=== PATIENT | female | born 1965 | race Caucasian/White ===

== ENCOUNTER 2017-04-30 08:21 | Emergency (ER) | payer MEDICAID ==
[~2017-04-30] VITALS: Ht 157.5 cm; Wt 64.4 kg
[~2017-04-30 08:21] MED LIST: CLON0.5T4 PO; IBUP-974 PO; SERT100T1 PO
[2017-04-30 08:28] VITALS: BP 141/106
--- NOTE | 2017-04-30 08:35 | NUR ---
Patient ambulated to bed 7. RN evaluating patient at bedside.
--- NOTE | 2017-04-30 08:45 | NUR ---
PATIENT PRESENTS TO ED WITH PT PRESENTS TO ER W/C/O PALPITATIONS AND INTERMITTENT CHEST PAIN. PT STATES SHE IS UNDER A LOT OF STRESS, AND HAS HX OF ANXIETY AND DEPRESSION. DENIES N/V/D; SKIN IS PINK/WARM/DRY; AAOX4 WITH EVEN AND STEADY GAIT; LUNGS CLEAR BL; HR EVEN AND REGULAR; PT DENIES ANY FEVER, SOB, OR COUGH AT THIS TIME; PATIENT STATES PAIN OF 8/10 AT THIS TIME; VSS; PATIENT POSITIONED FOR COMFORT; HOB ELEVATED; BEDRAILS UP X2; BED DOWN. ER MD MADE AWARE OF PT STATUS.
--- NOTE | 2017-04-30 08:51 | NUR ---
Dr. Campos evaluating patient at bedside.
[2017-04-30] MEDS ORDERED: ASPIRIN 325 MG TAB PO ONE (08:55)
[2017-04-30] MEDS ORDERED: NITROGLYCERIN 0.4 MG TAB SL ONE (08:55)
[2017-04-30] MEDS ORDERED: LORazepam 2 MG/ML VIAL IVP ONE (08:55)
[2017-04-30] MEDS ORDERED: LORazepam 1 MG TAB PO ONE (09:00)
--- NOTE | 2017-04-30 09:11 | NUR ---
tv technician at bedside.
[2017-04-30 09:35] LABS: BASOPHILS # (AUTO) 0.3 K/uL (0.00-0.22); EOSINOPHILS # (AUTO) 0.1 K/uL (0-0.4); EOSINOPHILS % (AUTO) 1.6 % (0.0-4.0); HEMATOCRIT 35.9 % (36-48); HEMOGLOBIN 11.7 g/dL (12.0-16.0); LYMPHOCYTES % (AUTO) 31.1 % (20.5-51.1); MEAN CORPUSCULAR HEMOGLOBIN 28 pg (27-31); MEAN CORPUSCULAR HGB CONC 33 g/dL (33-37); MEAN CORPUSCULAR VOLUME 86 fL (80-94); MONOCYTES # (AUTO) 0.5 K/uL (0.8-1.0); MONOCYTES % (AUTO) 7.6 % (1.7-9.3); NEUTROPHILS # (AUTO) 3.4 K/uL (1.8-7.7); NEUTROPHILS % (AUTO) 55.7 % (42.2-75.2); PLATELET COUNT (AUTO) 266 K/uL (140-450); RED BLOOD CELL COUNT(AUTO) 4.19 MIL/uL (4.20-5.40); RED CELL DISTRIBUTION WIDTH 14.2 % (11.6-13.7); WHITE BLOOD COUNT (AUTO) 6.3 K/uL (4.8-10.8)
[2017-04-30 09:50] LABS: ALBUMIN 3.5 g/dL (3.4-5.0); ANION GAP 11.5 (8-16); CARBON DIOXIDE 27.8 mmol/L (21-32); CREATININE 0.8 mg/dL (0.6-1.3); POTASSIUM 3.3 mmol/L (3.5-5.1); TOTAL BILIRUBIN 0.3 mg/dL (0.0-1.0)
[2017-04-30 10:55] VITALS: BP 114/73
--- NOTE | 2017-04-30 10:55 | NUR ---
Patient discharged with v/s stable. Written and verbal after care instructions given and explained. Patient verbalized understanding. Ambulatory with steady gait. All questions addressed prior to discharge. Advised to follow up with PMD.
== END 2017-04-30 10:55 | disposition home or self-care (01) ==
LOC: MED 08:21
DX: F41.9 Anxiety disorder, unspecified (principal); R07.89 Other chest pain; R00.2 Palpitations; R03.0 Elevated blood-pressure reading, without diagnosis of hypertension; F32.9 Major depressive disorder, single episode, unspecified
CPT/HCPCS: 36415; 71010; 80053; 84484; 85025; 85610; 85730; 93005; 99285; Q0092

== ENCOUNTER 2022-01-20 16:43 | Emergency (ER) | payer MEDICAID, OTHER ==
[~2022-01-20] VITALS: Ht 157.5 cm; Wt 70.8 kg
[2022-01-20 17:04] VITALS: BP 117/69
--- NOTE | 2022-01-20 17:15 | NUR ---
56 Y/O FEMALE C/O CHEST PAIN 01/26 X1DAY. PT STATES SHE TOOK NAPROXEN WITH SOME RELIEF. DENIES FEVER/CHILLS. DENIES N/V/D. PMH: AFIB BLOOD THINNERS NKA
[2022-01-20] MEDS ORDERED: KETOROLAC 60 MG/2 ML VIAL IM ONE (18:30)
[2022-01-20] MEDS ORDERED: OMEP40EC24 PO (18:58)
--- NOTE | 2022-01-20 19:34 | NUR ---
Patient discharged with v/s stable. Written and verbal after care instructions given and explained. Patient alert, oriented and verbalized understanding of instructions. Ambulatory with steady gait. All questions addressed prior to discharge. ID band removed. Patient advised to follow up with PMD. Rx of PRILOSEC given. Patient educated on indication of medication including possible reaction and side effects. Opportunity to ask questions provided and answered.
== END 2022-01-20 19:36 | disposition home or self-care (01) ==
LOC: MED 16:43
DX: R07.89 Other chest pain (principal); R10.9 Unspecified abdominal pain; Z79.899 Other long term (current) drug therapy; Z90.49 Acquired absence of other specified parts of digestive tract
CPT/HCPCS: 93005; 96372; 99283; J1885

== ENCOUNTER 2022-06-16 22:18 | Emergency (ER) | payer OTHER ==
[~2022-06-16] VITALS: Ht 157.5 cm; Wt 72.1 kg
[~2022-06-16 22:18] MED LIST changes: +OMEP40EC24 PO
[2022-06-16 22:35] VITALS: BP 131/64
--- NOTE | 2022-06-16 22:42 | NUR ---
Patient taken to bed 11.
--- NOTE | 2022-06-16 23:23 | NUR ---
Dr. Covarrubias examining patient.
[2022-06-16] MEDS ORDERED: DICYCLOMINE HCL LIQUID 20 MG, ALUMINUM HYD/MAG/SIMETHICONE 30 ML, LIDOCAINE VISCOUS 2% ... PO ONE ×3 (23:45)
[2022-06-16] MEDS ORDERED: KETOROLAC 30 MG/ML VIAL IM ONE (23:45)
[2022-06-16] MEDS ORDERED: ALUMINUM HYD/MAG/SIMETHICONE 30 ML UDC ONE (23:47)
[2022-06-16] MEDS ORDERED: DICYCLOMINE HCL LIQUID 10 MG/5 ML UDC ONE (23:48)
[2022-06-17 00:05] LABS: BASOPHILS % (AUTO) 0.7 % (0.0-2.0); EOSINOPHILS # (AUTO) 0.1 K/uL (0-0.4); EOSINOPHILS % (AUTO) 1.7 % (0.0-4.0); HEMATOCRIT 27.9 % (36-48); LYMPHOCYTES # (AUTO) 2.6 K/uL (2.5-16.5); LYMPHOCYTES % (AUTO) 40.9 % (20.5-51.1); MEAN CORPUSCULAR HEMOGLOBIN 23 pg (27-31); MEAN CORPUSCULAR HGB CONC 32 g/dL (33-37); MEAN CORPUSCULAR VOLUME 71.6 fL (80-94); MONOCYTES # (AUTO) 0.5 K/uL (0.8-1.0); MONOCYTES % (AUTO) 8.1 % (1.7-9.3); NEUTROPHILS # (AUTO) 3.1 K/uL (1.8-7.7); NEUTROPHILS % (AUTO) 48.6 % (42.2-75.2); PLATELET COUNT (AUTO) 232 K/uL (140-450); RED CELL DISTRIBUTION WIDTH 18.7 % (11.6-13.7); WHITE BLOOD COUNT (AUTO) 6.5 K/uL (4.8-10.8)
--- NOTE | 2022-06-17 00:08 | NUR ---
Patient lying in bed, A/Ox4, chest rise and fall symmetrical, no c/o pain or s/s of discomfort.
[2022-06-17 00:27] LABS: ANION GAP 11.9 (8-16); CARBON DIOXIDE 27.4 mmol/L (21-32); CREATININE 0.7 mg/dL (0.6-1.3); POTASSIUM 3.3 mmol/L (3.5-5.1); TOTAL BILIRUBIN 0.1 mg/dL (0.0-1.0)
[2022-06-17] MEDS ORDERED: POTASSIUM CHLORIDE 10 MEQ TABER PO ONE (00:35)
[2022-06-17] MEDS ORDERED: ACET-10509 PO (01:37)
[2022-06-17] MEDS ORDERED: MAG-27 PO (01:37)
[2022-06-17 01:58] VITALS: BP 132/78
== END 2022-06-17 01:59 | disposition home or self-care (01) ==
LOC: MED 22:18
DX: K21.9 Gastro-esophageal reflux disease without esophagitis (principal); I25.10 Atherosclerotic heart disease of native coronary artery without angina pectoris
CPT/HCPCS: 36415; 80053; 81002; 83690; 85025; 96372; 99283; J1885

== ENCOUNTER 2023-08-10 13:10 | Emergency (ER) | payer OTHER ==
[~2023-08-10] VITALS: Ht 157.5 cm; Wt 70.8 kg
[~2023-08-10 13:10] MED LIST changes: +ACET-10509 PO; +MAG-27 PO
[2023-08-10 13:42] VITALS: BP 150/90; PULSE 65; RESP 18; TEMP 97.9; O2SAT 100
[2023-08-10] MEDS: ONDANSETRON 4 MG ODT PO ONE (14:41)
[2023-08-10] MEDS: LORazepam 1 MG TAB PO ONE (14:42)
[2023-08-10 15:46] LABS: BASOPHILS # (AUTO) 0.1 K/uL (0.00-0.22); BASOPHILS % (AUTO) 0.5 % (0.0-2.0); EOSINOPHILS % (AUTO) 0.3 % (0.0-4.0); HEMATOCRIT 31.3 % (36-48); HEMOGLOBIN 10.2 g/dL (12.0-16.0); LYMPHOCYTES # (AUTO) 2.3 K/uL (2.5-16.5); LYMPHOCYTES % (AUTO) 22.1 % (20.5-51.1); MEAN CORPUSCULAR HEMOGLOBIN 24 pg (27-31); MEAN CORPUSCULAR HGB CONC 33 g/dL (33-37); MONOCYTES # (AUTO) 0.7 K/uL (0.8-1.0); MONOCYTES % (AUTO) 6.6 % (1.7-9.3); NEUTROPHILS # (AUTO) 7.2 K/uL (1.8-7.7); NEUTROPHILS % (AUTO) 70.5 % (42.2-75.2); PLATELET COUNT (AUTO) 264 K/uL (140-450); RED BLOOD CELL COUNT(AUTO) 4.28 MIL/uL (4.20-5.40); RED CELL DISTRIBUTION WIDTH 16.6 % (11.6-13.7); WHITE BLOOD COUNT (AUTO) 10.2 K/uL (4.8-10.8)
[2023-08-10 16:11] LABS: ANION GAP 13.6 (8-16); CALCIUM 8.6 mg/dL (8.5-10.1); CARBON DIOXIDE 27.2 mmol/L (21-32); CREATININE 0.8 mg/dL (0.6-1.3); POTASSIUM 3.8 mmol/L (3.5-5.1)
[2023-08-10 16:26] LABS: ALANINE AMINOTRANSFERASE 49 U/L (12-78); ALBUMIN 3.4 g/dL (3.4-5.0); ALKALINE PHOSPHATASE 125 U/L (50-136); ASPARTATE AMINOTRANSFERASE 45 U/L (15-37); BILIRUBIN,DIRECT 0.1 mg/dL (0.0-0.3); LIPASE 48 U/L (16-77); TOTAL BILIRUBIN 0.2 mg/dL (0.0-1.0); TOTAL PROTEIN, SERUM 7.5 g/dL (6.4-8.2)
[2023-08-10] MEDS ORDERED: ONDA-188 PO (18:14)
[2023-08-10] MEDS ORDERED: HYDR25CA1 PO (18:14)
== END 2023-08-10 18:26 | disposition home or self-care (01) ==
LOC: MED 13:10
DX: F41.0 Panic disorder [episodic paroxysmal anxiety] (principal); R07.9 Chest pain, unspecified; D64.9 Anemia, unspecified; R11.2 Nausea with vomiting, unspecified; K21.9 Gastro-esophageal reflux disease without esophagitis; I25.10 Atherosclerotic heart disease of native coronary artery without angina pectoris; Z79.899 Other long term (current) drug therapy
CPT/HCPCS: 36415; 71045; 80048; 80076; 83690; 84484; 85025; 93005; 99285; Q0162